=== PATIENT | male | born 1975 | race Caucasian/White ===

== ENCOUNTER 2022-08-22 12:56 | Observation (INO) | payer OTHER, SELFPAY ==
[2022-08-17 07:28] VITALS: BMI 39.4
[2022-08-21] VITALS (10 sets, daily range): BP systolic 102–146; BP diastolic 52–89; PULSE 57–78; RESP 12–18; TEMP 36.1–37.2; O2SAT 94–99; BMI 39.4
[2022-08-21] MEDS: VANCOMYCIN 1,000 MG/200 ML PIGGYBACK 200 MG IV (12:55)
[2022-08-21] MEDS: LACTATED RINGERS 1,000 ML 42 ML IV ×2 (12:56→14:55)
[2022-08-21 12:58] LABS: COVID19 -Nasal RAPID Negative (Negative)
--- NOTE | 2022-08-21 13:30 | DI.RAD.S_ITS ---
PROCEDURE: XR PELVIS 1-2V INDICATIONS: ESTELLE TECHNIQUE: Intra-operative view of the pelvis and hip acquired. COMPARISON: None. FINDINGS: Bones: Intraoperative devices prior to placement of arthroplasty prostheses are in expected positions. No fractures or suspicious bony lesions. Soft tissues: Overlying surgical retractors are present, along with other intraoperative changes. IMPRESSION: Expected intraoperative postsurgical change for left hip arthroplasty. Dictated by: Medina Radford MD, PhD on 08/21/2022 at 16:16 Approved by: Medina Radford MD, PhD on 08/21/2022 at 16:17
--- NOTE | 2022-08-21 13:31 | PM.HP.1 ---
History of Present Illness History of Present Illness Date Patient Seen: 08/21/22 Time Patient Seen: 13:00 Chief complaint: LEFT ESTELLE *OPB* Narrative: He notes a 1 year history of progressive worsening left hip pain. It severely restricts his overall lifestyle in his activities. Pain on a daily basis and it is already tried and failed extensive conservative treatment. He is interested in pursuing a left total hip arthroplasty. Patient History Medical History COVID-19 virus infection (04/2021) Hearing impaired HTN (hypertension) Kidney stones Osteoarthritis Psoriasis Sleep apnea Surgical History H/O vasectomy Hx of appendectomy Hx of knee surgery Hx of lithotripsy Family & Social History Social History: household members spouse Prior Living Arrangements House Safety & Behavioral: Feels Safe in Current Yes Environment Been Physically Hurt or No Threatened By a Person Suicidal Ideation Description None Suicide Plan Description No Plan Tobacco & Substance use: Tobacco type smokeless tobacco Smoking Status Never smoker alcohol intake current alcohol intake frequency a few times a month Substance Use Type does not use Meds Home Medications and Allergies Home Medications Medication Instructions Recorded Confirmed Type amlodipine 5 mg tablet 5 mg PO BEDTIME 08/17/22 08/21/22 History bupropion HCl 150 mg 24 hr tablet, 300 mg PO QAM 08/17/22 08/21/22 History extended release gabapentin 100 mg capsule 200 mg PO BEDTIME 08/17/22 08/21/22 History losartan 100 mg tablet 100 mg PO BEDTIME 08/17/22 08/21/22 History metoprolol succinate 25 mg 25 mg PO BEDTIME 08/17/22 08/21/22 History tablet,extended release 24 hr naltrexone 50 mg tablet 50 mg PO QPM 08/17/22 08/17/22 History Allergies Allergy/AdvReac Type Severity Reaction Status Date / Time iv contrast dye Allergy Severe Swelling, Uncoded 08/21/22 12:27 hives Review of Systems Review of Systems Narrative: Denies recent chest pain difficulty breathing abdominal pain no his known history of DVT or thromboembolic problems constant left hip pain. Exam Vital Signs (past 8 hours): - 08/21/22 12:34 Temperature 97.6 F Pulse Rate 57 L Respiratory Rate 16 Blood Pressure 126/67 Pulse Oximetry 98 Oxygen Delivery Method Room Air Oxygen Delivery Method Room Air Narrative Exam Narrative: HEENT is benign lungs are clear cor regular rate and rhythm abdomen is obese but soft and benign examination of the left hip shows shortening of the left leg and severe restricted range of motion of the left hip, his calf to soft distally. Can fire his toe flexors and extensors in his skin is intact. Objective Labs Labs: Laboratory Results - last 24 hr 08/21/22 12:30 SARS-CoV-2 (PCR) Negative x-rays show severe left hip osteoarthritis with marked joint space narrowing and flattening of the femoral head. Kl score 4 Assessment & Plan Assessment and plan (1) Osteoarthritis of left hip: Status: Acute (2) Sleep apnea in adult: Status: Acute Plan I have recommended a left total hip arthroplasty from a posterior approach. Patient does have significant obesity with a BMI of 39.5. He also has a history of sleep apnea. I have recommended a posterior approach. The procedure alternatives risks benefits and complications were discussed in detail. He is young at 46 but is having incapacitating hip pain which markedly restricts his overall lifestyle and activities. The procedure alternatives risks benefits and complications were discussed again in detail today. He would like to proceed with a left total hip arthroplasty. 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 Time Spent With Patient Critical Care time: I spent a total of [] minutes of critical care time on this patient's care today; this time is exclusive of procedural time.
--- NOTE | 2022-08-21 13:54 | P.OP_ITS ---
Operative Date/Time/Diagnoses Date of procedure: 08/21/22 Time of procedure: 14:00 Pre-op diagnosis: Severe left hip osteoarthritis with some component of avascular necrosis Post-op diagnosis: same Procedure & Clinicians Procedure: Left total hip arthroplasty posterior approach Same procedure as scheduled: Yes Indications: The patient has had progressively worsening left hip pain with radiographic changes consistent with arthritis. Non-operative management has failed and the patient has requested total hip replacement. The risks, benefits and alternatives to surgery were discussed with the patient prior to proceeding. Risks discussed included, but were not limited to, failure to relieve pain, leg length discrepancy, dislocation, stiffness, infection, nerve damage, deep venous thrombosis, pulmonary embolism, stroke, coma, heart attack, permanent paralysis and , as well as the potential need for eventual revision of the prosth etic. Surgeon: Shilpi Mcgarry Geographic Information Systems Manager: Randall Camacho Anesthesia Type: General and Spinal Operative Notes Findings: Severe left hip osteoarthritis, the hard bone, adequate stability Closure Type: primary Specimen(s): none sent Prosthetic devices, grafts, tissues, transplants, or devices: Mcgarry and nephew anthology standard offset size 7 anthology a, neutral poly liner, one 20 mm screw, R3 size 54, 36 by +0 Oxinium head Estimated Blood Loss (mL): 250 Procedure in detail: The patient was seen in the pre-operative area, where the patient identified the left hip as the operative site and this was marked with my initials. The patient received pre-operative antibiotics and was taken to the operating room and placed on the operative table in the right lateral decubitus position after satisfactory anesthesia. A director multimedia out was performed. The left leg was prepared from the ankle to the iliac crest with ChloroPrep in the usual fashion and draped through sterile drapes. The hip was approached through an approximately 20 cm incision centered over the greater trochanter and curving gently posteriorly as it went proximally. This was carried sharply to the fascia alhaji, which was divided and retracted with a self retaining retractor. The trochanteric bursa was excised with care being taken to avoid the sciatic nerve, which was identified and protected throughout the case. The short external rotators were incised and the capsulomuscular flap was raised and tagged for later repair. He had a fairly stiff hip with a hip abduction contracture. The hip was dislocated, and a femoral neck osteotomy performed approximately 15 mm above the lesser trochanter. Retractors were placed around the femur. The canal was opened with a box cutting osteotome, followed by a T handled reamer and a lateralizing reamer. He had very dense femoral bone. The chili pepper broach was then used, followed by sequential broaching until there was good stability of the broach in the femur. Retractors were placed to expose the acetabulum. The labrum and central soft tissues were removed. Reaming was performed initially going up in 2 mm increments, then 1 mm increments until good bite was obtained with an odd sized reamer. The cup 1 mm larger than the last reamer was then inserted using the appropriate anteversion guides. A trial neutral liner was placed. The broach was placed in the canal. A trial head and neck were then placed and the hip relocated and checked for leg length and stability. An intraoperative film confirmed the component position and no evidence of fracture. The patient was stable in the position of sleep, of squatting, and could be put through a range of motion with 45 degrees internal rotation without dislocation. At 90 degrees flexion, internal rotation to 70? was possible before dislocation. This was felt to be satisfactory and the appropriate components were opened, and the trials were removed. The acetabulum was further stabilized with a single screw. The acetabular liner was impacted into position. The final stem was then impacted into the prepared femoral canal. Femoral heads were trialed. The hip was meticulously irrigated with normal saline. Finally the femoral head was impacted onto the stem. The acetabulum was cleared of all material and the hip relocated one final time. The capsulomuscular flap was then repaired to the greater trochanter though an awl hole using the tag sutures. The short external rotators were repaired with a nonabsorbable suture. The fascia alhaji was closed with Vicryl. The subcutaneous layer was closed with barbed sutures and surgical glue. An Aquacel dressing was applied and the patient was taken to recovery having tolerated the procedure well. Complications: none Post-operative Condition: stable Disposition: Acute Care Plan for aftercare: The patient will be maintained on a standard total hip replacement protocol with weight bearing as tolerated and posterior hip precautions. The patient will receive Aspirin and sequential compression devices for DVT prophylaxis. The patient will be discharged home when safe for the home environment.
[2022-08-21] MEDS: CEFAZOLIN 2 GM/100 ML PREMIX 100 ML IV ×2 (14:05→21:26)
[2022-08-21] MEDS: TRANEXAMIC ACID 1,000 MG VIAL 2000 MG INJ ×2 (14:06→15:49)
[2022-08-21] MEDS: BUPIVACAINE LIPOSOME 266 MG/20 ML VIAL INJ (14:22)
[2022-08-21] MEDS: BUPIVACAINE 0.25% (PF) 60 ML, EPINEPHrine 0.3 MG INJ (14:22)
--- NOTE | 2022-08-21 14:25 | SUR.OPER ---
Lateral on padded OR bed. Gel axillary roll. Arms secured on padded armboard with pillow supporting top arm. Padded hip positioner braces x4 - anterior and posterior chest and pelvis. Additional gel pad used anterior pelvis. Gel pad under bottom leg from knee to foot and secured with tape over sheet. Pt positioned per direction and supervision of Dr Mcgarry
[2022-08-21] MEDS: SODIUM CHLORIDE IRRIG SOLUTION 250 ML, EPINEPHrine 1 MG IRR (14:31)
--- NOTE | 2022-08-21 16:15 | DI.RAD.S_ITS ---
PROCEDURE: XR HIP W PEL IF DONE LT 2V INDICATIONS: post op left poterior hip TECHNIQUE: AP pelvis and lateral view of the left hip acquired. COMPARISON: None. FINDINGS: Bones: Patient is status post left hip arthroplasty, with hardware components in expected positions. The hip joint appears congruent. The visualized bony structures appear intact. Moderate right hip osteoarthritic degenerative changes. Soft tissues: Overlying postoperative changes are noted. No suspicious soft tissue densities. Vasectomy clips. IMPRESSION: Expected postsurgical change for left hip arthroplasty. Dictated by: Medina Radford MD, PhD on 08/21/2022 at 16:45 Approved by: Medina Radford MD, PhD on 08/21/2022 at 16:46
[2022-08-21] MEDS: OXYCODONE IR 5 MG TABLET PO ×2 (16:42→21:11)
[2022-08-21] MEDS: ACETAMINOPHEN 325 MG TABLET 975 MG PO (16:49)
[2022-08-21] MEDS: PREGABALIN 75 MG CAPSULE PO (16:50)
[2022-08-21] MEDS: CELECOXIB 200 MG CAPSULE PO (16:50)
--- NOTE | 2022-08-21 16:59 | SUR.PHASEI ---
pt reports bilat lower leg/foot pain burning worse with light palpation CMS otherwise intact on exam Dr. Ricketts bedside for assess
[2022-08-21] MEDS: IBUPROFEN 400 MG TABLET PO (17:52)
[2022-08-21] MEDS: LACTATED RINGERS 1,000 ML 125 ML IV (17:52)
[2022-08-21] MEDS: ACETAMINOPHEN 325 MG TABLET 650 MG PO (17:53)
[2022-08-21] MEDS: hydrOXYzine pamoate 25 MG CAPSULE PO (17:59)
[2022-08-21] MEDS: OXYCODONE IR 10 MG TABLET PO (18:20)
[2022-08-21] MEDS: GABAPENTIN 100 MG CAPSULE 200 MG PO (21:12)
[2022-08-21] MEDS: ASPIRIN EC 81 MG TABLET PO (21:12)
[2022-08-21] MEDS: DOCUSATE 100 MG CAPSULE PO (21:12)
[2022-08-22] MEDS: ACETAMINOPHEN 325 MG TABLET 650 MG PO ×3 (00:23→12:46)
[2022-08-22] MEDS: OXYCODONE IR 5 MG TABLET PO ×2 (00:23→05:31)
[2022-08-22] MEDS: IBUPROFEN 400 MG TABLET PO ×3 (00:23→12:46)
[2022-08-22 00:39] VITALS: BP 114/45; PULSE 70; RESP 18; TEMP 36.1; O2SAT 98
[2022-08-22] MEDS: LACTATED RINGERS 1,000 ML 125 ML IV (01:57)
[2022-08-22] MEDS: CEFAZOLIN 2 GM/100 ML PREMIX 100 ML IV (05:28)
[2022-08-22 05:29] VITALS: BP 121/60; PULSE 79; RESP 18; TEMP 36.7; O2SAT 98
[2022-08-22 05:55] LABS: Hematocrit 38.3 % (41-53)
--- NOTE | 2022-08-22 07:00 | PM.DS.1 ---
History of Present Illness History of Present Illness Date Patient Seen: 08/22/22 Time Patient Seen: 07:00 Chief complaint: LEFT ESTELLE *OPB* Narrative: Operative Date/Time/Diagnoses Date of procedure: 08/21/22 Time of procedure: 14:00 Pre-op diagnosis: Severe left hip osteoarthritis with some component of avascular necrosis Post-op diagnosis: same Procedure & Clinicians Procedure: Left total hip arthroplasty posterior approach Same procedure as scheduled: Yes Indications: The patient has had progressively worsening left hip pain with radiographic changes consistent with arthritis. Non-operative management has failed and the patient has requested total hip replacement. The risks, benefits and alternatives to surgery were discussed with the patient prior to proceeding. Risks discussed included, but were not limited to, failure to relieve pain, leg length discrepancy, dislocation, stiffness, infection, nerve damage, deep venous thrombosis, pulmonary embolism, stroke, coma, heart attack, permanent paralysis and , as well as the potential need for eventual revision of the prosthetic. Surgeon: Shilpi Mcgarry Flow Manager: Randall Camacho Anesthesia Type: General and Spinal Operative Notes Findings: Severe left hip osteoarthritis, the hard bone, adequate stability Closure Type: primary Specimen(s): none sent Prosthetic devices, grafts, tissues, transplants, or devices: Mcgarry and nephew anthology standard offset size 7 anthology a, neutral poly liner, one 20 mm screw, R3 size 54, 36 by +0 Oxinium head Estimated Blood Loss (mL): 250 Discharge Providers Provider Discharge Date: 08/22/22 Primary care physician: Prince Coretta MD Consults: 08/21/22 12:25 Consult to Anesthesiology Routine Comment: Consulting Provider: Anesthesiologist Reason for consultation: Post operative pain managment 08/21/22 13:29 Consult to Anesthesiology Routine Comment: Consulting Provider: Anesthesiologist Reason for consultation: Regional block for post operative pain control 08/21/22 17:27 Consult to Discharge Planning Routine Comment: Consult to Physical Therapy Evaluate & Treat Comment: Physician Instructions: post op ESTELLE protocol Discharge provider: Gissell Singer PA-C Summary Hospital Course Discharge Diagnosis: Left hip osteoarthritis with avascular necrosis, s/p left total hip arthroplasty Hospital Course: Mr Bahena'bertram hospital course was unremarkable. On the morning of POD# 1, he was feeling well and wanted to go home. He was eating and voiding without difficulty. He had not yet been out of bed or worked w/ PT. His pain was well-controlled with oral medication. Exam Vital Signs (past 8 hours): - 08/22/22 00:39 08/22/22 05:29 Temperature 97.0 F L 98.0 F Pulse Rate 70 79 Respiratory Rate 18 18 Blood Pressure 114/45 L 121/60 Pulse Oximetry 98 98 Oxygen Flow Rate 0 0 Oxygen Delivery Method Room Air Oxygen Flow Rate 0 Narrative Exam Narrative: 3/5 hip flexors, quadriceps, hamstrings; 5/5 DF, PF, EHL on left. Sensation to light touch intact throughout LLE. Calf soft, compressible, nontender and without palpable cords or masses. Aquacel dressing CDI. Objective Labs 08/22/22 05:25 Labs: Laboratory Results - last 24 hr 08/21/22 08/22/22 12:30 05:25 Hgb 13.0 L Hct 38.3 L SARS-CoV-2 (PCR) Negative PFSH Medical History COVID-19 virus infection (04/2021) Hearing impaired HTN (hypertension) Kidney stones Osteoarthritis Psoriasis Sleep apnea Surgical History H/O vasectomy Hx of appendectomy Hx of knee surgery Hx of lithotripsy Social History household members: spouse Smoking Status: Never smoker alcohol intake: current Discharge Assessment & Plan Assessment and Plan Assessment: Left hip osteoarthritis with avascular necrosis, s/p left total hip arthroplasty Plan of Treatment: D/C home after PT if PT feels pt is safe to do so. Multimodal pain control, outpt PT, ASA 81 mg BID for VTE prophylaxis. Discharge Plan Discharge Plan Patient Disposition: Home Discharge orders & Medications Discharge Orders: Discharge (Order); Ordered 08/22/22 Ordered By: Gissell Singer Prescriptions: New oxycodone 5 mg Tablet 5 mg PO Q4-6H PRN (Reason: pain, severe) Qty: 60 0RF docusate sodium 100 mg Capsule 100 mg PO BID PRN (Reason: constipation) Qty: 60 1RF hydroxyzine pamoate 25 mg Capsule 25 mg PO Q6HR PRN (Reason: muscle spasm) Qty: 90 0RF acetaminophen 325 mg Tablet 650 mg PO Q6HR PRN (Reason: fever or pain) Qty: 240 0RF aspirin 81 mg Tablet,Delayed Release (Dr/Ec) 81 mg PO BID Qty: 90 0RF ibuprofen 400 mg Tablet 400 mg PO Q6HR PRN (Reason: pain) Qty: 120 0RF Continued amlodipine 5 mg Tablet 5 mg PO BEDTIME gabapentin 100 mg Capsule 200 mg PO BEDTIME metoprolol succinate 25 mg Tablet Extended Release 24 Hr 25 mg PO BEDTIME losartan 100 mg Tablet 100 mg PO BEDTIME bupropion HCl 150 mg Tablet Extended Release 24 Hr 300 mg PO QAM Discontinued naltrexone 50 mg Tablet 50 mg PO QPM Pharmacist Comment: Hold naltrexone while taking oxycodone for pain. Can continue bupropion. Restart naltrexone when no longer needing oxycodone for pain. Follow up/Referrals: Prince Hitchcock MD [Primary Care Provider] - Shilpi Mcgarry MD [Physician] - As previously scheduled (Follow up w/ Dr Mcgarry on 09/06/2022 @ 3:00 pm at [facility] office in [place].) Diet/Activity/Treatments Diet: Diet as Tolerated Activity: Weight bearing as tolerated on left leg. Posterior hip precautions. Cold/Heat Therapy: Ice to hip as needed for pain. Skin/Wound/Dressing Care Report to your healthcare provider any signs of infection, such as:: chills, fever, night sweats, unusual drainage and unusual redness Dressing: May shower w/ Aquacel dressing in place. Leave Aquacel on until follow up in office. No bathing or otherwise soaking incision. Call the office if the dressing becomes saturated inside. Visit Report/Discharge Packet Instructions: DI for Hip Replacement Stand Alone Forms: Patient Portal/API, Stroke Signs & Symptoms, Surgery Discharge Discharge Data Primary Care Provider: Prince Coretta Attending Provider: Shilpi Mcgarry Quality VTE Deep Vein Thrombosis/Pulmonary Embolism Present on Admission: No
[2022-08-22 09:03] VITALS: BP 100/56; PULSE 68; RESP 16; TEMP 36.6; O2SAT 97
[2022-08-22] MEDS: OXYCODONE IR 10 MG TABLET PO ×2 (09:10→12:47)
[2022-08-22] MEDS: buPROPion XL 150 MG TAB 300 MG PO (09:10)
[2022-08-22] MEDS: ASPIRIN EC 81 MG TABLET PO (09:11)
[2022-08-22] MEDS: DOCUSATE 100 MG CAPSULE PO (09:11)
--- NOTE | 2022-08-22 09:30 | PT.IIE ---
Current Diagnoses Sleep apnea, unspecified (08/22/22) Unilateral primary osteoarthritis, left hip (08/22/22) Pain in left hip (08/22/22) Presence of unspecified artificial hip joint (08/22/22) Surgery Performed Operation Date: 08/21/22 14:15 Actual Procedures p Total Hip Arthroplasty - posterior(Left) - Shilpi Mcgarry MD Surgical History (Last Reviewed 08/21/22 @ 13:32 by Shilpi Mcgarry MD) H/O vasectomy Hx of appendectomy Hx of knee surgery Hx of lithotripsy Medical History (Last Reviewed 08/21/22 @ 13:32 by Shilpi Mcgarry MD) COVID-19 virus infection (04/2021) Hearing impaired HTN (hypertension) Kidney stones Osteoarthritis Psoriasis Sleep apnea Physical Therapy Inpatient Evaluation/Re-Eval M1 PT/OT-IP Prior Functional Status Start: 08/22/22 13:21 Freq: NEEDED Status: Active Protocol: Document 08/22/22 09:30 AB (Rec: 08/22/22 13:40 AB [id number]) Medical Review Prior Functional Status Medical History Reviewed Yes Communication able to make needs known Mobility and Gait pt stated that he is independent with all mobilities and ambulation without AD but occasionally uses a SPC to help him get up from the chair Social History Household Members spouse Living Arrangements House Number of Floors (Floors) One Floor Number of Stairs To Enter/Railing? 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 M2 PT-IP Current Condition Start: 08/22/22 13:21 Freq: NEEDED Status: Active Protocol: Document 08/22/22 09:30 AB (Rec: 08/22/22 13:40 AB [email or web address]) Physical Therapy Current Condition Current Condition Evaluation Date 08/22/22 Treatment Diagnosis s/p L ESTELLE posterior approach; difficulty in walking Onset Date 08/21/22 M3 PT-IP Subjective Start: 08/22/22 13:21 Freq: NEEDED Status: Active Protocol: Document 08/22/22 09:30 AB (Rec: 08/22/22 13:40 AB [email or web address]) Subjective Physical Therapy Visit Type Type Initial Evaluation Visit Start Time 09:30 Visit Stop Time 10:40 Total Visit Minutes 70 Number of PAUNCH TRIMMER Visits 0 Physical Therapy Visit Comments Patient Comments agreeable to do PT Therapy Pain Assessment Pain When Pain Assessed At Rest Pain Present Pain Present Pain Reported Location Left Hip Scale Used pain scale not stated Pain Management Techniques Apply Cold,Distraction, Modification of Treatment,Re- positioning,Timing of Activity with Medications M4 PT-IP Mobility and Gait Start: 08/22/22 13:21 Freq: NEEDED Status: Active Protocol: Document 08/22/22 09:30 AB (Rec: 08/22/22 13:40 AB [id number]) PT-Bed Mobility Assessment Supine to Sit Supine to Sit Standby Assistance Sit to Supine Sit to Supine Standby Assistance PT-Transfer Assessment Sit to and From Stand Sit to and from Stand Standby Assistance,Contact Guard Assistance,Minimal Assistance,1 Person Assistance ,Use of Upper Extremities Equipment Transfer Assistive Device Gait Belt,Front Wheeled Walker Orthotic/Prosthetic Devices or Brace: No Transfers Transfer Destination Chair Transfer Technique ambulated Transfer Ability Level of Assist Contact Guard Assistance,1 Person Assistance,Use of Upper Extremities Comments Mobility Comments educated pt and spouse regarding posterior hip precautions. pt required cues to recall. completed supine to sit SBA and cues. presents with difficulty completing task and needs increase time to completed. pt able to sit on EOB SBA. completed sit to stand from the EOB min A and max cues for techniques and hip precautions. pt ambulated in room ~ 20 ft using FWW CGA and sat on the chair. caregiver training conducted. educated spouse on safety belt use and how to assist pt. spouse was able to put safety belt on pt. spouse assisted pt with sit to stand CGA and ambulated pt to the toilet using fWW. spouse was able to assist pt with toileting needs. pt ambulated towards the sink using fww CGA with spouse assisting. pt able to maintain standing balance CGA while completing handwashing. pt ambulated more in room ~ 40 ft using FWW with spouse assisting SBA to CGA. pt sat on EOB and demonstrated sit<> supine SBA. educated spouse on how to assist pt when needed. pt agreed to sit up on the chair. sit to stand SBA and completed step transfer bed to chair using FWW CGA. positioned pt on the chair. call light and table placed within reach. Pt and spouse without further concerns. Gait Assessment Gait Gait Assistance Required: Standby Assistance,Contact Guard Assist Distance (Feet) 40 Able to Maintain Weight Bearing Status Yes During Gait Assistive Devices Assistive Device Gait Belt,Front Wheeled Walker Orthotic/Prosthetic Devices or Brace: No Gait Deviations General Gait Pattern Antalgic,Decreased Stride Length,Decreased Feet Clearance Factors Limiting Gait Function Factors Limiting Gait Function Decreased Activity Tolerance, Decreased Strength,Limited Range of Motion,Pain,Poor Balance,Poor Safety Awareness PT-Balance Assessment Sitting Balance and Reactions Static Sitting Balance Ability Normal Dynamic Sitting Balance Ability Normal Standing Balance and Reactions Static Standing Balance Ability Fair Dynamic Standing Balance Ability Fair Device Used FWW M5 PT-IP Objective Assessments Start: 08/22/22 13:21 Freq: NEEDED Status: Active Protocol: Document 08/22/22 09:30 AB (Rec: 08/22/22 13:40 AB [id number]) Orientation Orientation/Cognition Level of Alertness Alert Orientation Name,Place,Situation Language Function Ability No Deficits Noted,Hard of Hearing Safety Awareness Decreased Safety Awareness Memory Description Short Term Impaired Gross Range of Motion Lower Extremity ROM Assessment Within Functional Limits Strength Lower Extremity Strength Assessment Left Impaired Hip 3-/5 Knee 4-/5 Sensation Assessment Sensation Gross Sensation WNL Muscle Tone Muscle Tone WNL Yes M6 PT-IP Treatment Start: 08/22/22 13:21 Freq: NEEDED Status: Active Protocol: Document 08/22/22 09:30 AB (Rec: 08/22/22 13:40 AB [email or web address]) Physical Therapy Treatment Education Education Provided Precautions,Weight Bearing Status,Post-Op Packet,Safety M7 PT-IP Assessment and Plan Start: 08/22/22 13:21 Freq: NEEDED Status: Active Protocol: Document 08/22/22 09:30 AB (Rec: 08/22/22 13:40 AB [email or web address]) PT Summary Assessment and Plan Potential Rehabilitation Potential Fair Status of Condition at Evaluation Stable Summary Impairments Pain,ROM,Strength,Balance, Coordination,Sensation,Tone, Cognition,Bed Mobility, Transfers,Gait,Activity Tolerance Assessment Summary pt requiring SBA to CGA with mobility using FWW. caregiver training conducted and spouse was able to assist pt safely. pt may go home when medically stable. Goals Bed Mobility Goal Independent Transfer Goal Independent,Front Wheeled Walker Gait Goal Independent,Front Wheel Walker Gait Distance 250 Days to Meet Goals 5 Frequency of Treatment Frequency Of Treatment Twice a Day Treatment Plan Physical Therapy Treatment Plan Bed Mobility Training,Transfer Training,Gait Training, Therapeutic Exercise,Balance Retraining,Post Op Education, Discharge Planning,Hot or Cold Pack,Neuromuscular Re-ed, Coordination Retraining,Manual Therapy Precautions Posterior Hip Precautions No Hip Flexion > 90 degrees,No Hip Internal Rotation,No Hip Adduction Weight Bearing Status Weight Bearing Status Weight Bear as Tolerated Allowed Weight Bearing Amount (enter % LLE WBAT or #) (%) Recommendations To Nursing Amount of Assist Needed 1 Person Assist Discharge Recommendations PT Discharge Recommendations Home with Assistance, Outpatient PT Transportation Needs at Discharge Private Vehicle,Wheelchair/ Cabulance
[2022-08-22 13:00] VITALS: BP 111/60; PULSE 62
--- NOTE | 2022-08-22 13:22 | PC.NURSE ---
Patient teaching done at bedside with spouse present. All questions and concerns address. Aware of prescriptions sent to pharm. Patient was medicated for pain prior to d/c. Appt sched. for f/u with Surgery prior to hospital stay. Patients is in stable condition, VSS, escorted to personal vehicle via wheel chair.
== END 2022-08-22 13:45 | disposition home or self-care (01) ==
LOC: OR 13:15 → AC 13:15
PROVIDERS: Admitting Provider Orthopaedic Surgery; PCP Family Medicine; Referring Provider Family Medicine; Visit Provider Orthopaedic Surgery
PROC: 0SRB0JZ Replacement of Left Hip Joint with Synthetic Substitute, Open Approach (ICD-10-PCS; CPT 27130; principal; 2022-08-21 14:15)
DX: M16.12 Unilateral primary osteoarthritis, left hip (principal); M87.9 Osteonecrosis, unspecified; G47.30 Sleep apnea, unspecified
CPT/HCPCS: 27130; 36415; 72170; 73502; 85014; 85018; 87635; 97161; 97530; C1776; C9803; G0378; C9290; J0171; J0690; J1100; J2250; J2405; J2704; J3010